=== PATIENT | female | born 1995 | race Caucasian/White ===

== ENCOUNTER 2019-09-04 15:18 | Outpatient (CLI) | payer OTHER, SELFPAY ==
--- NOTE | ~2019-09-04 | US_ITS ---
EXAMINATION: US pelvic complete w TV DATE: 09/04/2019 16:00 INDICATION: Assess IUD position TECHNIQUE: Multiple transabdominal and endovaginal sonographic images of the pelvis were obtained. COMPARISON: None. FINDINGS: The uterus measures 7.5 x 2.3 x 4.0 cm. An IUD is present in the uterus in expected positio n. The endometrial complex measures 4 mm. The right ovary measures 2.9 x 2.4 x 2.3 cm. The left ovary measures 2.6 x 2.4 x 2.1 cm. There is normal vascular flow in the ovaries. There is no free fluid i n the pelvis. IMPRESSION: 1. IUD in expected position. Reviewed, dictated and finalized at location A. [employer]
== END 2019-09-04 15:19 | disposition home or self-care (01) ==
PROVIDERS: PCP Family Medicine; Visit Provider Obstetrics & Gynecology
DX: Z97.5 Presence of (intrauterine) contraceptive device (principal)
CPT/HCPCS: 76830; 76856

== ENCOUNTER 2023-12-24 09:13 | Emergency (ER) | payer BC, SELFPAY ==
[2023-12-24 09:20] VITALS: BP 125/76; PULSE 86; RESP 16; TEMP 36.5; O2SAT 99
--- NOTE | 2023-12-24 09:46 | ED.URI ---
HPI - URI/Sore Throat General Chief Complaint: Upper Respiratory Infection Stated Complaint: Sore Throat Time Seen by Provider: 12/24/23 09:40 Source: patient, RN notes reviewed and old records reviewed Mode of arrival: ambulatory Limitations: no limitations History of Present Illness HPI Narrative: 28 year old female who presents to [facility] care with complaints of sore throat some left ear pain for one week duration with no improvement. Patient reports that she has not noted any sinus congestion or drainage has had some ear discomfort but denies any known cough. Patient reports that her tonsils have been swollen and it has been painful to swallow for a week. Patient reports that she has taken some Ibuprofen for her discomfort. Patient is getting ready to travel this weekend and then will be going out of the country and wanted to get checked out before she left for vacation. MD elicited complaint: sore throat and other (ear pain right) Pertinent past history: other (ear infections) Onset (ago): week(s) (1) Pain scale (0-10): 3 Able to tolerate fluids by mouth: Yes Exacerbating factors: swallowing Treatments prior to arrival: ibuprofen Related Data Home Medications Medication Instructions Recorded Confirmed levonorgestrel 17.5 mcg/24 hr (up 1 device intrauterine ONCE 02/12/20 03/29/23 to 5 yrs) 19.5mg intrauterine device (Kyleena) Allergies Allergy/AdvReac Type Severity Reaction Status Date / Time No Known Allergies Allergy Unverified 12/24/23 09:41 Review of Systems Review of Systems: CONSTITUTIONAL: Denies malaise, chills, sweats, or fever. EYES: Denies visual changes, redness, or discharge. ENT: Reports no rhinorrhea, congestion, sinus pain,positive otalgia and sore throat. CARDIOVASCULAR: Denies chest pain, palpitations, or edema. RESPIRATORY: Reports no cough.? Denies dyspnea. GASTROINTESTINAL: Denies abdominal pain, nausea, vomiting, diarrhea SKIN: Denies rash or itching. MUSCULOSKELETAL: Denies myalgia. NEUROLOGIC: Denies headache. All systems reviewed & are unremarkable except as noted in HPI and below PMFSH Past Medical History Medical History (Updated 12/24/23 @ 19:31 by Anu Guevara NP) Ear infection Wrist fracture Family History Family History Mother Diabetes mellitus Social History Social History Smoking status: Never smoker Second hand tobacco smoke exposure: No Alcohol intake: current Substance use: never Substance use type: does not use Living arrangements: with family Occupation/Education: unemployed Gender identity (if verbalized by the patient): Female Comments At time of signature, agree with nursing past medical, surgical, social and family history. There is no relevant family history pertinent to the presenting complaint Exam Narrative: GENERAL: Well-appearing, well-nourished, and in no acute distress. HEAD: Normocephalic EYES: PERRLA, conjunctivae clear ENT: Nares clear, turbinates edematous and erythematous, clear discharge. Mucous membranes moist. TM pearly veliz with dull light reflex bilaterally; no tragal tenderness. Oropharynx erythematous without lesions. Tonsils red enlarged and without exudate, no drooling, no hoarseness, no trismus, uvula midline. NECK: Supple. lymphadenopathy CHEST: Clear to auscultation, breath sounds equal. No wheezing, rhonchi, rales, or stridor. No respiratory distress, speaks in full sentences. no cough noted SAO2 99% on room air HEART: Regular rate and rhythm. No murmur heard. SKIN: Warm, dry, no rash. NEURO: Alert and oriented x3. PSYCH: Normal mood and affect Course Course Emergency Course: Patient is aware of diagnosis, understands and agrees to treatment plan.? Anticipatory guidance given.? Patient agrees to follow-up as directed and is aware of reasons to seek
== END 2023-12-24 10:02 | disposition home or self-care (01) ==
PROVIDERS: Emergency Provider Registered Nurse; PCP Family Medicine
DX: J03.90 Acute tonsillitis, unspecified (principal)
CPT/HCPCS: 87081; 87880; 99213; G0463

== ENCOUNTER 2024-11-12 08:03 | Emergency (ER) | payer BC, SELFPAY ==
--- NOTE | ~2024-11-12 | XR_ITS ---
3 VIEWS THORACIC SPINE Ordering provider: Sultana Ortiz APRN History: . posterior thoracic pain, level of scapulas . Comparison: None. FINDINGS: VERTEBRAL BODIES: Normal height and alignment. No visible fracture or subluxation. early degenerative changes of the spine. DISK SPACES: Normal. SOFT TISSUES: Normal. IMPRESSION: No acute osseous abnormality of the thoracic spine. Reviewed, dictated and finalized at location A.
[2024-11-12 08:15] VITALS: BP 148/92; PULSE 106; RESP 16; TEMP 36.4; O2SAT 100
--- NOTE | 2024-11-12 08:27 | ED.BACK ---
HPI - Back Pain/Injury General Chief Complaint: Back Pain/Injury Stated Complaint: UPPER BACK PAIN Time Seen by Provider: 11/12/24 08:26 Source: patient Mode of arrival: ambulatory Limitations: no limitations History of Present Illness HPI Narrative: Patient presents today complaining of left upper back a lot for the last couple months. She denies having any injury. Previously had a problem with her neck and right arm a couple years ago that required PT. She has tried OTC medications for pain with minimal relief. Denies any numbness, tingling, or radiation of pain at this time. Related Data Home Medications ?Medication ?Instructions ?Recorded ?Confirmed ?Last Taken ?Type levonorgestrel 17.5 mcg/24 hr (up 1 device intrauterine ONCE 02/12/20 11/12/24 Unknown History to 5 yrs) 19.5mg intrauterine device (Kyleena) phentermine 37.5 mg tablet mg 11/12/24 Unknown History Allergies Allergy/AdvReac Type Severity Reaction Status Date / Time No Known Allergies Allergy Verified 11/12/24 08:16 Review of Systems Review of Systems: CONSTITUTIONAL: Denies body aches, fever, chills EYES: Denies visual changes CARDIOVASCULAR: Denies chest pain, palpitations, or edema. RESPIRATORY: Denies cough or dyspnea. GASTROINTESTINAL: Denies abdominal pain, nausea, vomiting, or diarrhea. SKIN: Denies rash, itching, or wounds. MUSCULOSKELETAL: reports back pain to upper right trap. NEUROLOGIC: Denies headache, numbness, tingling, or weakness. All systems reviewed & are unremarkable except as noted in HPI and below PMFSH Past Medical History Medical History (Updated 11/12/24 @ 09:14 by Sultana Ortiz APRN) Wrist fracture Ear infection Family History Family History Mother Diabetes mellitus Social History Social History Smoking status: Never smoker Second hand tobacco smoke exposure: No Alcohol intake: current Substance use: never Substance use type: does not use Living arrangements: with family Occupation/Education: unemployed Gender identity (if verbalized by the patient): Female Comments At time of signature, I have reviewed and agree with nursing past medical, surgical, social and family history unless otherwise noted. Please see nursing chart for further information. There is no relevant family history pertinent to the presenting complaint. Exam Narrative: GENERAL: Well-appearing, well-nourished, and in no acute distress. HEAD: Normocephalic, atraumatic. EYES: ?conjunctivae clear NECK: Supple. full ROM. CHEST: Speaks in full sentences. No respiratory distress. HEART: Regular rate and rhythm. Normal and equal peripheral pulses. MUSC: ?No Vertebral point tenderness. BLEs with normal strength and sensation, normal range of motion, but endorses pain with movement in left upper trap. No edema or ecchymosis, No open wounds, ?skin tenting, ?or obvious deformity; alignment normal, ?pulse palpable and equal bilaterally, skin warm, dry, pink. Capillary refill less than 3 seconds. ?Gait steady. SKIN: Warm, dry, no rash. NEURO: Alert and oriented x3.? Course Course Level of Care: Express Care Visit Vital Signs Vital signs: Vital Signs Temperature 97.5 F L 11/12/24 08:15 Pulse Rate 106 H 11/12/24 08:15 Respiratory Rate 16 11/12/24 08:15 Blood Pressure 148/92 H 11/12/24 08:15 Pulse Oximetry 100 11/12/24 08:15 Temperature 97.5 F L 11/12/24 08:15 Pulse Rate 106 H 11/12/24 08:15 Respiratory Rate 16 11/12/24 08:15 Blood Pressure 148/92 H 11/12/24 08:15 Pulse Oximetry 100 11/12/24 08:15 reviewed MDM - Back Pain/Injury MDM Narrative Medical decision making narrative: Discussed physical exam findings and xray. Advised supportive measures and signs/symptoms to go to the ER. Pt is appropriate for outpt treatment and follow up. Differential Diagnosis Differential diagnosis: Likely thoracic back pain and other (sciatica, piriformis syndrome, diskitis, muscle strain, degenerative joint disease) Lab Data Labs: ITS Impressions Thoracic Spine X-Ray 11/12/24 08:46 IMPRESSION: No acute osseous abnormality of the thoracic spine. Critical Care Time Critical Care Time Critical Care Time: No Discharge Plan Discharge Clinical Impression: Back pain Qualifiers: Back pain location: thoracic back pain Chronicity: acute Back pain laterality: left Qualified Code(s): M54.6 - Pain in thoracic spine Patient Disposition: Home Condition: Stable Instructions: Antibiotic Form, Back Pain (ED) Additional Instructions: Take medications as prescribed. Cyclobenzaprine can make you drowsy. Do not operate heavy machinery or drive until you know how this medication effects you. Rest. Avoid pushing, pulling, lifting or anything that worsens the symptom. Tylenol every 8 hours as needed. You can alternate with ibuprofen. Alternate ice/heat to the site. Lidocaine or salon pas pain patch or use pain cream like icy/hot or biofreeze. Keep your appointment with your primary care in 5 days and be sure to follow up. Go to the ER for worsening symptoms or concerns. Patient Language: Egyptian Prescriptions: New methylprednisolone [Medrol (Reg)] 4 mg tablets,dose pack See Rx Instructions .ROUTE .COMPLEX Qty: 21 0RF Rx Instructions: for 6 days cyclobenzaprine 10 mg tablet 10 mg PO BID Qty: 10 0RF No Action phentermine 37.5 mg tablet Kyleena 17.5 mcg/24 hrs (5 yrs) 19.5 mg intrauterine device 1 device I-UTERINE ONCE Rx Instructions: as a single dose Follow-up/Referrals: Garrick Medina MD [Primary Care Provider] -
== END 2024-11-12 09:22 | disposition home or self-care (01) ==
PROVIDERS: PCP Family Medicine
DX: M54.6 Pain in thoracic spine (principal)
CPT/HCPCS: 72072; 99213; G0463

== ENCOUNTER 2024-11-26 09:27 | Outpatient (CLI) | payer BC, SELFPAY ==
--- NOTE | ~2024-11-26 | XR_ITS ---
Left Shoulder Technique: AP and axillary views were obtained. Clinical History: Pain Findings: No fracture or dislocation is seen. Osseous alignment is anatomic. The glenohumeral and acr omioclavicular joint spaces are preserved. Soft tissues are unremarkable. Impression: Unremarkable left shoulder radiographs. Reviewed, dictated and finalized at [facility]. Impression: Unremarkable left shoulder radiographs.
== END 2024-11-26 09:28 | disposition home or self-care (01) ==
PROVIDERS: PCP Family Medicine
DX: M25.512 Pain in left shoulder (principal)
CPT/HCPCS: 73030